=== PATIENT | female | born 1970 | race Caucasian/White ===

== ENCOUNTER 2019-08-31 08:20 | Day surgery (SDC) | payer BC ==
[~2019-08-31 08:20] MED LIST: Lactated Ringers 1,000 ML IV SCH
[2019-08-31] MEDS ORDERED: fentaNYL 250 MCG/5 ML SDV ONE (08:48)
[2019-08-31] MEDS ORDERED: Midazolam 1 MG/ML 2 ML SDV ONE (08:48)
[2019-08-31] MEDS ORDERED: Propofol 200 MG/20 ML SDV ONE (08:48)
[2019-08-31] MEDS ORDERED: ePHEDrine 50 MG/ML SDV ONE (08:52)
[2019-08-31] MEDS ORDERED: Rocuronium Bromide 50 MG/5 ML Syringe ONE (08:52)
[2019-08-31] MEDS ORDERED: Succinylcholine/Sod PF 100 MG/5 ML SYRINGE IV ONE (08:52)
--- NOTE | 2019-08-31 09:27 | PCM.PREANE ---
Preanesthetic Assessment - Anesthesia/Transfusion/Family Hx Anesthesia History: Prior Anesthesia Without Reaction Family History of Anesthesia Reaction: No Transfusion History: No Prior Transfusion(s) - Review of Systems General: No Symptoms Pulmonary: No Symptoms Cardiovascular: No Symptoms Gastrointestinal: No Symptoms Neurological: No Symptoms Other: Reports: None - Physical Assessment NPO Status Date: 08/30/19 Vital Signs: Last Vital Signs Temp 97.5 F 08/31/19 08:00 Pulse 71 08/31/19 08:00 Resp 16 08/31/19 08:00 BP 175/95 H 08/31/19 08:50 Pulse Ox 97 08/31/19 08:00 Height: 5 ft 6.5 in Weight: 94.347 kg ASA Class: 2 Mental Status: Alert & Oriented x3 Airway Class: Mallampati = 2 Dentition: Reports: Normal Dentition ROM/Head Extension: Full Lungs: Clear to Auscultation, Normal Respiratory Effort Cardiovascular: Regular Rate, Regular Rhythm - Lab Values: Laboratory Last Values Hgb 13.8 g/dL (12.0-16.0) 08/30/19 11:23 Hct 42.1 % (36.0-46.0) 08/30/19 11:23 HCG, Qual NEGATIVE (NEG) 08/30/19 11:23 - Allergies Allergies/Adverse Reactions: Allergies Allergy/AdvReac Type Severity Reaction Status Date / Time No Known Allergies Allergy Verified 08/31/19 09:02 - Blood Blood Available: No - Anesthesia Plan Pre-Op Medication Ordered: None - Acknowledgements Anesthesia Type Planned: General Anesthesia Pt an Appropriate Candidate for the Planned Anesthesia: Yes Alternatives and Risks of Anesthesia Discussed w Pt/Guardian: Yes Pt/Guardian Understands and Agrees with Anesthesia Plan: Yes Additional Comments: PMH: thyroid replacement PLAN: ga/lma PreAnesthesia Questionnaire - Past Health History Medical/Surgical History: Denies Medical/Surgical History HEENT History: Reports: Other (See Below) Other HEENT History: wears glasses Cardiovascular History: Reports: Other (See Below) Other Cardiovascular History: was told she had a heart murmur 3 years ago- no diagnostic testing done- has been told since that she does not have a murmur CARD CLEANER History: Reports: Dysfunctional Uterine Bleeding, , Spontaneous Musculoskeletal History: Reports: Fracture Other Musculoskeletal History: hx of fx left arm and left ankle Neurological History: Reports: Other (See Below) Other Neuro History: hx of motion sickness Psychiatric History: Reports: Depression Endocrine/Metabolic History: Reports: Obesity/BMI 30+ Dermatologic History: Reports: Other (See Below) Other Dermatologic History: has had a rash on the back of her hands for 6 weeks - Past Surgical History Head Surgeries/Procedures: Reports: None HEENT Surgical History: Reports: Tonsillectomy Musculoskeletal Surgical History: Reports: ORIF Other Musculoskeletal Surgeries/Procedures:: ORIF left ankle- has hardware - SUBSTANCE USE Smoking Status *Q: Never Smoker Recreational Drug Use History: No - HOME MEDS Home Medications: Home Meds Levothyroxine 125 mcg PO DAILY 08/26/19 [History] Sertraline [Zoloft] 50 mg PO DAILY 08/26/19 [History] - CURRENT (IN HOUSE) MEDS Current Meds: Current Medications Lactated Ringer's (Ringers, Lactated) 1,000 mls @ 125 mls/hr IV ASDIRECTED ELOY Last Admin: 08/31/19 09:04 Dose: 125 mls/hr Documented by: Discontinued Medications Ephedrine Sulfate (Ephedrine Sulfate) Confirm Administered Dose 50 mg .ROUTE .STK-MED ONE Stop: 08/31/19 08:53 Fentanyl (Sublimaze) Confirm Administered Dose 250 mcg .ROUTE .STK-MED ONE Stop: 08/31/19 08:49 Midazolam HCl (Versed 1 Mg/Ml) Confirm Administered Dose 2 mg .ROUTE .STK-MED ONE Stop: 08/31/19 08:49 Propofol (Diprivan 20 Ml) Confirm Administered Dose 200 mg .ROUTE .STK-MED ONE Stop: 08/31/19 08:49 Rocuronium [place] (Rocuronium [place]) Confirm Administered Dose 50 mg .ROUTE .STK-MED ONE Stop: 08/31/19 08:53
--- NOTE | 2019-08-31 10:41 | PCM.OPNOTE ---
- General Post-Op/Procedure Note Date of Surgery/Procedure: 08/31/19 Operative Procedure(s): operative hysteroscopy with directed biopsy, and thermal endometrial ablation Findings: Uterus sounds to 10 cm, cervix 4.5 cm, polypoid lesions anterior and lateral lower uterine segment, good visualization of uterine cavity. Pre Op Diagnosis: menorrhagia, endometrial polyps. Post-Op Diagnosis: Same Anesthesia Technique: General ET Tube Primary Surgeon: Romi Bell Secondary Surgeon: Armen Newell Anesthesia Provider: Dominguez Son Booking Prizer: Coni Delong Pathology: endometrial directed biopsies and curettings (one specimen). Fluid Replacement, Intraop: 1,000 EBL in mLs: 50 Drain/Tube Comments:: hysteroscopic deficint 550 ml NS Complications: None Condition: Good
--- NOTE | 2019-08-31 12:25 | PCM.POSTAN ---
POST ANESTHESIA ASSESSMENT - MENTAL STATUS Mental Status: Alert, Oriented - VITAL SIGNS Vital Signs: Last Vital Signs Temp 97.5 F 08/31/19 10:43 Pulse 80 08/31/19 11:14 Resp 11 L 08/31/19 11:14 BP 149/88 H 08/31/19 11:14 Pulse Ox 94 L 08/31/19 11:14 - RESPIRATORY Respiratory Status: Respiratory Rate WNL, Airway Patent, O2 Saturation Stable - CARDIOVASCULAR CV Status: Pulse Rate WNL, Blood Pressure Stable - GASTROINTESTINAL GI Status: No Symptoms - POST OP HYDRATION Hydration Status: Adequate & Stable
--- NOTE | 2019-08-31 12:25 | PCM48HPAN ---
Post Anesthesia Note - EVALUATION WITHIN 48HRS OF ANESTHETIC Vital Signs in Normal Range: Yes Patient Participated in Evaluation: Yes Respiratory Function Stable: Yes Airway Patent: Yes Cardiovascular Function Stable: Yes Hydration Status Stable: Yes Pain Control Satisfactory: Yes Nausea and Vomiting Control Satisfactory: Yes Mental Status Recovered: Yes Vital Signs: Last Vital Signs Temp 97.5 F 08/31/19 10:43 Pulse 80 08/31/19 11:14 Resp 11 L 08/31/19 11:14 BP 149/88 H 08/31/19 11:14 Pulse Ox 94 L 08/31/19 11:14
--- NOTE | 2019-08-31 14:52 | OR ---
SURGEON: Romi Bell M.D. DATE OF PROCEDURE: 08/31/2019 PREOPERATIVE DIAGNOSES: Menorrhagia, uterine polyps. POSTOPERATIVE DIAGNOSES: Menorrhagia, uterine polyps. PROCEDURE: Hysteroscopically directed polypectomy and uterine curettings with Beth endometrial ablation. PRIMARY SURGEON: Romi Bell MD [employer] FABRICATION: SABINE Gil ANESTHESIA: General endotracheal. FLUIDS: 1000 mL of crystalloid. ESTIMATED BLOOD LOSS: 50 mL. FINDINGS: Uterus anteverted, sounds to 10 cm. Cervix sounds to 4.5 cm. Upon hysteroscopic evaluation, there was excellent visualization of the uterine cavity. Bilateral tubal ostia were identified. There were at least three large polypoid structures in the lower uterine segment anteriorly and laterally. These were removed by MyoSure. PATHOLOGY SPECIMEN: Endometrial curettings and polypectomy as one specimen. COMPLICATIONS: None known. DISPOSITION: Stable to Recovery. HYSTEROSCOPIC DEFICIT: 550 mL of normal saline. BRIEF HISTORY: This is a 49-year-old female. She has menorrhagia. She was evaluated with endometrial biopsy in the clinic, which was benign. Additionally, she underwent a saline enhanced ultrasound, which showed multiple polypoid structures in the lower uterine segment. We had discussed possible cryoablation in the clinic, however, and she also declined Mirena IUD. Due to the polypoid structures, I recommended proceeding with a hysteroscopic polypectomy with a thermal endometrial ablation in the operating room with risks discussed including bleeding; infection; injury to bowel, bladder, blood vessels, ureters, or other organs; risk of thromboembolic event; risk of uterine perforation; risk of anesthesia. She also understands that this procedure does not provide contraception. Additionally, she understands that future pregnancies could have devastating outcomes due to the lack of endometrial tissue for implantation. Understanding all these risks, she does desire to proceed. I also did general counselor her regarding the presence of medical student, and she did consent to the presence of the medical student as well as allowing him to do a preoperative pelvic exam. DESCRIPTION OF PROCEDURE: With the patient in the dorsal lithotomy position, under adequate general endotracheal anesthesia, the abdomen, perineum, and vagina were prepped with Betadine and draped in usual fashion for vaginal surgery. SCDs were in place. The bladder had been drained with a red Badillo catheter and an appropriate time-out was held. Bimanual examination revealed an anteverted 9-week size uterus, mobile. Speculum was placed in the vagina. The cervix was grasped with an Allis clamp and the cervix was easily dilated to an 8 mm Hegar dilator. The 8 mm hysteroscope was placed into the uterine cavity with excellent visualization. The MyoSure was then utilized to remove the polypoid structures as well as do a general curettage. With this, the endometrial cavity appeared normal. Bilateral tubal ostia had been identified. The hysteroscopy being completed, attention was then turned to the Beth. The Beth balloon was set at 5.5 cm and with this the arms were retracted, placed to the uterine fundus. The balloon was insufflated. However, there was still a leak at the cervical os. Therefore, additional air was placed into the balloon as well as utilizing an Allis clamp to close the cervical os. With this, the test mode was complete and a 2-minute treatment mode was performed. The balloon was then desufflated, the arms were retracted and removed, and the instruments were removed from the vagina. Final sponge, needle, and instrument counts were reported as correct. There were no known complications. The patient was transferred to Recovery in good condition. CAROLYN / LILIBETH /[id number]
== END 2019-08-31 13:10 | disposition home or self-care (01) ==
LOC: MW.SDS 08:20
PROVIDERS: ATTEND Obstetrics & Gynecology
DX: N84.0 Polyp of corpus uteri (principal); E66.9 Obesity, unspecified; F32.9 Major depressive disorder, single episode, unspecified; E03.9 Hypothyroidism, unspecified; Z79.899 Other long term (current) drug therapy; Z79.890 Hormone replacement therapy
CPT/HCPCS: 36415; 58563; 84703; 85014; 85018; 88305; J0330; J2250; J2704; J3010; J7120